=== PATIENT | female | born 2000 | race American Indian/Alaskan Native ===

== ENCOUNTER 2020-06-05 10:38 | Emergency (ER) | payer OTHER ==
--- NOTE | 2020-06-05 12:21 | EDM.PDOC ---
ED HPI GENERAL MEDICAL PROBLEM - General Chief Complaint: ENT Problem Time Seen by Provider: 06/05/20 11:00 Source of Information: Reports: Patient History Limitations: Reports: No Limitations - History of Present Illness INITIAL COMMENTS - FREE TEXT/NARRATIVE: c/o fever and ST pt was at a wedding at her home with 20 other people 2w ago, one of whom tested positive for COVID she lives with brother, his , 's mother and uncle and uncle's as well as brother's child [place], both family and friends, 3d ago got home and felt hot, seat and chills had ST, had myalgias yesterday, no cough taking ibuprofen and apap, took a dose before coming to ED does not have thermometer has h/o sore throat 2x/yr, has been told she has strep in the past 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 Denies: Ear Pain, Rhinitis Respiratory: Reports: No Symptoms. Denies: Shortness of Breath, Cough Cardiovascular: Reports: No Symptoms. Denies: Chest Pain Endocrine: Reports: No Symptoms GI/Abdominal: Reports: No Symptoms. Denies: Abdominal Pain : Reports: No Symptoms Musculoskeletal: Reports: No Symptoms Skin: Reports: No Symptoms Neurological: Reports: No Symptoms Psychiatric: Reports: No Symptoms Hematologic/Lymphatic: Reports: No Symptoms Immunologic: Reports: No Symptoms ED EXAM, ENT - Physical Exam Exam: See Below Exam Limited By: No Limitations General Appearance: Alert, WD/WN, No Apparent Distress, Other (tired, nontoxic) Eye Exam: Bilateral Eye: Conjunctival Injection (1+ red b/l without swell or d/c) Ears: Normal External Exam, Normal Canal, Hearing Grossly Normal, Normal TMs Nose: Normal Inspection, Normal Mucousa, No Blood Mouth/Throat: Other (2+ tonsils b/l with mild 1+ red and small exudate on R tonsil, multiple 1-1.5 cm under angles of mandibles b/l that are slightly tender) Neck: Normal Inspection, Supple, Full Range of Motion, Lymphadenopathy (R), Lymphadenopathy (L) Respiratory/Chest: No Respiratory Distress, Lungs Clear, Normal Breath Sounds, No Accessory Muscle Use, Chest Non-Tender Cardiovascular: Regular Rate, Rhythm, No Edema, No Gallop, No Murmur, No Rub GI/Abdominal: Soft, Non-Tender, No Distention Back: Normal Inspection Extremities: Normal Inspection, Normal Range of Motion, Non-Tender, No Pedal Edema Neurological: Alert, Oriented, CN II-XII Intact, Normal Cognition, No Motor/Sensory Deficits Psychiatric: Normal Affect, Normal Mood Skin: Warm, Dry, Intact, Normal Color, No Rash Lymphatic: No Adenopathy Course - Vital Signs Last Recorded V/S: Last Vital Signs Temp 36.6 C 06/05/20 10:38 Pulse 58 L 06/05/20 10:38 Resp 16 06/05/20 10:38 BP 129/85 06/05/20 10:38 Pulse Ox 100 06/05/20 10:38 - Orders/Labs/Meds Orders: Active Orders 24 hr Category Date Time Status CORONAVIRUS COVID-19, NATALYA Routine Lab 06/05/20 12:15 Ordered CULTURE STREP A CONFIRMATION [RM] Stat Lab 06/05/20 10:40 Results STREP SCRN A RAPID W CULT CONF [RM] Stat Lab 06/05/20 10:40 Results - Re-Assessments/Exams Free Text/Narrative Re-Assessment/Exam: 06/05/20 12:23 viral pharyngitis by hx and PE, TC pending, cannot exclude COVID given multiple exposures altho less likely not working agrees to tx plan mono testing deferred, less likely as well Departure - Departure Time of Disposition: 12:15 Disposition: Home, Self-Care 01 Condition: Good Clinical Impression: Acute viral pharyngitis - Discharge Information *PRESCRIPTION DRUG MONITORING PROGRAM REVIEWED*: Not Applicable *COPY OF PRESCRIPTION DRUG MONITORING REPORT IN PATIENT TYLER: Not Applicable Instructions: Pharyngitis Referrals: PCP,None [Primary Care Provider] - Additional Instructions: For fever and pain, take ibuprofen 200 mg 3 tabs and acetaminophen 500 mg 2 tabs 4 times a day for 5 days. Get adequate rest. Increase fluids. Self quarantine with face mask, social distancing and good handwashing for the next 5 days, longer if the COVID test comes back positive. While the ibuprofen and acetaminophen should help, see your doctor if you are not much better in 5 days. Sepsis Event Note (ED) - Evaluation Sepsis Screening Result: No Definite Risk - Focused Exam Vital Signs: Vital Signs Temp Pulse Resp BP Pulse Ox 06/05/20 10:38 36.6 C 58 L 16 129/85 100 - My Orders Last 24 Hours: My Active Orders 06/05/20 10:40 CULTURE STREP A CONFIRMATION [RM] Stat STREP SCRN A RAPID W CULT CONF [RM] Stat 06/05/20 12:15 CORONAVIRUS COVID-19, NATALYA Routine - Assessment/Plan Last 24 Hours: My Active Orders 06/05/20 10:40 CULTURE STREP A CONFIRMATION [RM] Stat STREP SCRN A RAPID W CULT CONF [RM] Stat 06/05/20 12:15 CORONAVIRUS COVID-19, NATALYA Routine
== END 2020-06-05 12:40 | disposition home or self-care (01) ==
LOC: FB.ED 10:38
DX: J02.9 Acute pharyngitis, unspecified (principal); Z20.828 Contact with and (suspected) exposure to other viral communicable diseases
CPT/HCPCS: 87081; 87880-QW; 99282; 99283; U0002

== ENCOUNTER 2021-07-21 11:48 | Emergency (ER) | payer MEDICAID ==
[2021-07-21] MEDS ORDERED: Amoxicillin 500 MG Cap PO ONE (11:49)
--- NOTE | 2021-07-21 12:15 | EDM.PDOC ---
ED HPI GENERAL MEDICAL PROBLEM - General Chief Complaint: ENT Problem Stated Complaint: SINUS INFECTION Time Seen by Provider: 07/21/21 12:00 - History of Present Illness INITIAL COMMENTS - FREE TEXT/NARRATIVE: 20-year-old lady with a past medical history significant for chronic upper respiratory infections and chronic strep throat came to the emergency department after a 6-day history of sinus pain, sinus drainage, headache, sore throat, cough, and development of left ear pain. He has tried taking Tylenol at home but has not tried any other [id number] remedies. She has not been seen by any other providers. She does not know of any Covid positive contacts. She has not been vaccinated for COVID-19. She denies chest pain, shortness of breath, change in bowel or bladder habits. - Related Data Allergies Allergy/AdvReac Type Severity Reaction Status Date / Time No Known Allergies Allergy Verified 07/21/21 12:07 Home Meds: Home Meds Amoxicillin 500 mg PO BID #20 capsule 07/21/21 [Rx] ED ROS ENT - Review of Systems Review Of Systems: See Below Constitutional: Reports: Fatigue HEENT: Reports: Ear Pain, Rhinitis, Sinus Problem, Throat Pain Respiratory: Reports: Cough Cardiovascular: Reports: No Symptoms Endocrine: Reports: No Symptoms GI/Abdominal: Reports: No Symptoms : Reports: No Symptoms Musculoskeletal: Reports: No Symptoms Skin: Reports: No Symptoms Neurological: Reports: No Symptoms Psychiatric: Reports: No Symptoms Hematologic/Lymphatic: Reports: No Symptoms Immunologic: Reports: No Symptoms ED EXAM, ENT - Physical Exam Exam: See Below Exam Limited By: No Limitations General Appearance: Alert, No Apparent Distress Eye Exam: Bilateral Eye: EOMI Ears: TM Bulging, TM Dullness Nose: Nasal Discharge, Nasal Tenderness, Other (Erythema, edema, no obvious purulent discharge, tenderness to palpation over the bilateral maxillary and frontal sinuses) Mouth/Throat: Pharyngeal Erythema, Throat Pain, Tonsillar Erythema, Tonsillar Swelling Head: Atraumatic, Normocephalic Neck: Lymphadenopathy (R), Lymphadenopathy (L) Respiratory/Chest: No Respiratory Distress, Lungs Clear Cardiovascular: Normal Peripheral Pulses, Regular Rate, Rhythm, No Murmur GI/Abdominal: Normal Bowel Sounds, Non-Tender Back: Normal Inspection. No: CVA Tenderness (R), CVA Tenderness (L) Extremities: Normal Inspection, No Pedal Edema Neurological: Alert, Oriented, CN II-XII Intact, Normal Cognition Psychiatric: Normal Affect, Normal Mood Skin: Warm, Dry Course - Vital Signs Text/Narrative:: OB test is negative. Patient does not have leukocytosis. However, given patient's erythema, edema, sinus tenderness, history of sinus infections, and cobblestoning of the oropharynx patient will be started on amoxicillin. Last Recorded V/S: Last Vital Signs Temp 36.8 C 07/21/21 12:08 Pulse 79 07/21/21 12:08 Resp 16 07/21/21 12:08 BP 137/80 07/21/21 12:08 Pulse Ox 96 07/21/21 12:08 - Orders/Labs/Meds Orders: Active Orders 24 hr Category Date Time Status CBC WITH AUTO DIFF [HEME] Stat Lab 07/21/21 12:08 Ordered CORONAVIRUS COVID-19 NATALYA [MOLEC] Stat Lab 07/21/21 12:08 Ordered STREP A BY PCR [MOLEC] Stat Lab 07/21/21 12:08 Ordered Departure - Departure Time of Disposition: 13:35 Disposition: Admitted As Inpatient 64 Condition: Good Clinical Impression: Acute bacterial sinusitis - Discharge Information *PRESCRIPTION DRUG MONITORING PROGRAM REVIEWED*: Not Applicable *COPY OF PRESCRIPTION DRUG MONITORING REPORT IN PATIENT TYLER: Not Applicable Instructions: Sinusitis, Adult, [id number] Referrals: PCP,None [Primary Care Provider] - Additional Instructions: Patient instructed on how to use nasal steroids properly and advised to use nasal steroids daily continuously. Patient advised that she can use [id number] antihistamines, decongestants, Tylenol/NSAIDs. Patient advised to take antibiotics as directed until completed. Patient advised to follow-up with her primary care physician. Sepsis Event Note (ED) - Evaluation Sepsis Screening Result: No Definite Risk - Focused Exam Vital Signs: Vital Signs Temp Pulse Resp BP Pulse Ox 07/21/21 12:08 36.8 C 79 16 137/80 96 - My Orders Last 24 Hours: My Active Orders 07/21/21 12:08 CBC WITH AUTO DIFF [HEME] Stat CORONAVIRUS COVID-19 NATALYA [MOLEC] Stat STREP A BY PCR [MOLEC] Stat - Assessment/Plan Last 24 Hours: My Active Orders 07/21/21 12:08 CBC WITH AUTO DIFF [HEME] Stat CORONAVIRUS COVID-19 NATALYA [MOLEC] Stat STREP A BY PCR [MOLEC] Stat
[2021-07-21 13:28] LABS: CORONAVIRUS COVID-19 NAA NEGATIVE (NEGATIVE)
[2021-07-21 13:36] LABS: STREP A BY PCR NOT DETECTED (NOT DETECT)
== END 2021-07-21 13:45 | disposition home or self-care (01) ==
LOC: FB.ED 11:48
DX: J01.90 Acute sinusitis, unspecified (principal); B96.89 Other specified bacterial agents as the cause of diseases classified elsewhere; Z20.822 Contact with and (suspected) exposure to COVID-19
CPT/HCPCS: 36415; 85025; 87635; 87651; 99284; A9270; U0002

== ENCOUNTER 2023-06-29 12:56 | Emergency (ER) | payer SELFPAY | END 2023-06-29 15:22 | disposition home or self-care (01) | LOC: FB.ED 12:56 | DX: S05.12XA Contusion of eyeball and orbital tissues, left eye, initial encounter (principal); S00.431A Contusion of right ear, initial encounter; S00.81XA Abrasion of other part of head, initial encounter; Y04.0XXA Assault by unarmed brawl or fight, initial encounter | CPT/HCPCS: 70486; 99284 ==

== ENCOUNTER 2024-02-01 05:20 | Emergency (ER) | payer SELFPAY | END 2024-02-01 05:45 | disposition home or self-care (01) | LOC: FB.ED 05:20 | DX: Z02.89 Encounter for other administrative examinations (principal); F10.129 Alcohol abuse with intoxication, unspecified | CPT/HCPCS: 99283 ==